=== PATIENT | female | born 1955 | race African-American/Black ===

== ENCOUNTER 2017-03-12 17:40 | Emergency (ER) | payer OTHER ==
[~2017-03-12] VITALS: Ht 160 cm; Wt 67.0 kg
[2017-03-12] MEDS ORDERED: ACETAMINOPHEN 325MG TABLET PO STA (18:06)
[2017-03-12] MEDS ORDERED: ONDANSETRON HCL 4MG/2ML VIAL IV STA (18:06)
[2017-03-12] MEDS ORDERED: SODIUM CHLORIDE 0.9% 1000ML BAG (SEPSIS BOLUS) IV ONE (18:15)
[2017-03-12 18:57] LABS: HEMATOCRIT. 43.3 % (36.0-48.0); HEMOGLOBIN. 15.2 g/dL (12.0-16.0); MEAN CORPUSCULAR HEMOGLOBIN 30.4 pg (28.0-32.0); MEAN CORPUSCULAR VOLUME 86.9 fL (81.0-99.0); MEAN PLATELET VOLUME 9.4 fl (7.4-10.4); PLATELET 142 x1000/uL (130-400); RED BLOOD CELL COUNT 4.98 mill/uL (4.2-5.4); RED CELL DISTRIBUTION WIDTH 13.2 % (11.6-14.6)
[2017-03-12 19:01] LABS: INR 1.1
[2017-03-12 19:07] LABS: CARBON DIOXIDE 31 mEq/L (21-32); CHLORIDE 99 mEq/L (98-107)
[2017-03-12 19:48] LABS: PLATELET ESTIMATE NORMAL
[2017-03-12 20:44] LABS: CLARITY URINE CLEAR (CLEAR); COLOR URINE YELLOW (YELLOW); GLUCOSE URINE NEGATIVE (NEGATIVE); KETONES URINE 1+ (NEGATIVE); LEUKOCYTE ESTERASE URINE NEGATIVE (NEGATIVE); NITRITE URINE NEGATIVE (NEGATIVE); OCCULT BLOOD URINE TRACE (NEGATIVE); PROTEIN URINE NEGATIVE (NEGATIVE); SPECIFIC GRAVITY URINE 1.008 (1.005-1.030)
[2017-03-12] MEDS ORDERED: ONDANSETRON HCL 4MG/2ML VIAL IV ONE (21:30)
[2017-03-13 00:05] VITALS: BP 155/87
[2017-03-13] MEDS ORDERED: KCL 20MEQ/100ML PREMIX 100 ML IV ONE (00:15)
[2017-03-13] MEDS ORDERED: POTASSIUM CHLORIDE 20MEQ/PACKET PO ONE (00:15)
== END 2017-03-13 03:05 | disposition short-term general hospital (02) ==
LOC: ER 19:14
DX: R65.10 Systemic inflammatory response syndrome (SIRS) of non-infectious origin without acute organ dysfunction (principal); D72.825 Bandemia; E87.6 Hypokalemia; R53.1 Weakness; I10 Essential (primary) hypertension
CPT/HCPCS: 36415; 71010; 74176; 80053; 81001; 83605; 85025; 85610; 87040; 93005; 96361; 96365; 96375; 99285; J2405; J3480; J7030; Z7610